=== PATIENT | male | born 1965 | race Caucasian/White ===

== ENCOUNTER 2023-01-17 13:59 | Emergency (ER) | payer OTHER ==
[~2023-01-17] VITALS: Ht 185.4 cm; Wt 90.7 kg
[~2023-01-17 13:59] MED LIST: ASPI325 PO; ASPI81CH PO; CLIN150 PO; DICL25ER PO; DIPH50 PO; DISU500 PO; FAMO20 PO; HYDACE5 PO; IBUP400 PO; IBUP800 PO; LIDO700A20 TOP; SOMA350 MG PO; SULTRIDS PO; TAMS.4ER PO; TRAM50 PO; TRIA80TC
== END 2023-01-17 16:00 | disposition left against medical advice (07) ==
LOC: ER 13:59
DX: R33.9 Retention of urine, unspecified (principal); R30.0 Dysuria; Z53.21 Procedure and treatment not carried out due to patient leaving prior to being seen by health care provider
CPT/HCPCS: 51798

== ENCOUNTER → 2023-04-06 | Outpatient (CLI) | payer OTHER | LOC: LAB SHORT 18:29 → LAB 18:29 | DX: L03.114 Cellulitis of left upper limb (principal) | CPT/HCPCS: 87070; 87075; 87077; 87147; 87186; 87205 ==

== ENCOUNTER 2025-04-25 08:02 | Inpatient (IN) | payer OTHER ==
[~2025-04-25] VITALS: Ht 185.4 cm; Wt 95.2 kg
[~2025-04-25 08:02] MED LIST changes: +CEPH500 PO
[2025-04-25] MEDS ORDERED: ATORVASTATIN CA20 MG PO (09:02)
[2025-04-25 09:29] LABS: Source, Urine Clean Catch
[2025-04-25 09:34] LABS: Bilirubin, Urine Neg (Neg); Color, Urine Yellow (P-Yellow); Glucose Qualitative, Urine Neg (Neg); Ketones, Urine 1+ (Neg); Leukocyte Esterase, Urine 3+ (Neg); Protein, Urine 3+ (Neg); Specific Gravity, Urine 1.015 (1.003-1.022); Urobilinogen, Urine NORM (Normal)
[2025-04-25 09:41] LABS: BASOPHILS ABSOLUTE AUTO 0.10 K/mm3 (0.00-0.23); BASOPHILS PERCENT AUTO 0 % (0-2); EOSINOPHILS ABSOLUTE AUTO 0.00 K/mm3 (0.00-0.68); EOSINOPHILS PERCENT AUTO 0 % (0-6); Hematocrit 41.3 % (37.0-53.0); Hemoglobin 13.7 g/dL (13.5-17.5); IMMATURE GRAN ABSOLUTE AUTO 0.31 K/mm3 (0.00-0.10); IMMATURE GRAN PERCENT AUTO 1 % (0-1); LYMPHOCYTES ABSOLUTE AUTO 0.92 K/mm3 (0.84-5.20); LYMPHOCYTES PERCENT AUTO 3 % (21-46); MONOCYTES ABSOLUTE AUTO 2.27 K/mm3 (0.16-1.47); MONOCYTES PERCENT AUTO 8 % (4-13); Mean Corpuscular HGB Conc 33.2 g/dL (31.5-36.5); Mean Corpuscular Volume 88 fL (80-100); NEUTROPHILS ABSOLUTE AUTO 26.83 K/mm3 (1.96-9.15); NEUTROPHILS PERCENT AUTO 88 % (41-73); NRBC ABSOLUTE 0.00 K/mm3 (0.00-0.02); NRBC Auto 0.0 /100 WBC (0.0-0.2); Platelet Count 318 K/mm3 (150-400); RDW Coefficient Variation 15.4 % (11.7-14.2); RDW Standard Deviation 50.1 fL (35.1-46.3)
[2025-04-25 09:45] LABS: White Blood Cells, Urine 50-100 /hpf (0-5)
[2025-04-25 10:28] LABS: Alanine Aminotransfer (ALT/SGP 22.0 U/L (12-78); Albumin, Blood 2.9 g/dL (3.4-5.0); Albumin/Globulin Ratio 0.7 (0.8-1.8); Anion Gap 7.0 mmol/L (3-11); Aspartate Aminotrans (AST/SGOT 13.0 U/L (12-37); Bilirubin, Total 1.0 mg/dL (0.1-1.0); Blood Urea Nitrogen 16.0 mg/dL (8-24); CO2, Blood 29.0 mmol/L (21-32); Calcium, Blood 8.1 mg/dL (8.5-10.1); Chloride, Blood 101.0 mmol/L (98-108); Creatinine, Blood 1.19 mg/dL (0.60-1.20); Globulin, Blood 4.1 g/dL (2.2-4.0); Glucose, Blood 156.0 mg/dL (70-99); Potassium, Blood 4.0 mmol/L (3.5-5.5); Sodium, Blood 133.0 mmol/L (136-145); Total Protein, Blood 7.0 g/dL (6.4-8.2)
[2025-04-25] MEDS ORDERED: NS 1,000 ML IV SCH ×2 (11:05→12:00)
[2025-04-25] MEDS ORDERED: CefTRIAXone Sodium 1,000 MG in NS 100 ML IV ONE ×2 (11:10→13:00)
[2025-04-25 14:04] VITALS: BP 153/83
[2025-04-25 15:21] VITALS: BP 136/80
[2025-04-25] MEDS ORDERED: Ipratropium/Albuterol SulF 2.5-0.5MG/3 ML Amp INH PRN (16:20)
[2025-04-25] MEDS ORDERED: FentaNYL Citrate 50 MCG/ML 2 ML Injection IV PRN (16:20)
[2025-04-25] MEDS ORDERED: Albuterol HFA200 ACT/6.7 GM INH INH PRN (16:25)
--- NOTE | 2025-04-25 16:26 | NUR ---
ADMIT REPORT RECEIVED FROM ER TO YURY KIRK LPN. PT ARRIVED VIA GURNEY ACCOMPANIED BY CHAVO. PT IMMEDIATELY NEEDED TO USE THE BATHROOM AND HAD A EXPLOSIVE LOOSE STOOL. PT RELATED THAT THE LOOSE STOOL STARTED SEVERAL DAYS AGO. TALKED WITH DR BEAN ABOUT A CDIFF ASSAY. PT HAS BEEN TAKING ANTIBOTICS OUT PT. CARE ONGOING.
[2025-04-25] MEDS ORDERED: Lactobacil 2-S.Thermo-Bifido 1 1 Cap PO SCH (17:00)
[2025-04-25 19:17] VITALS: BP 131/81
[2025-04-26 00:16] LABS: Campylobacter Sp Not Detected (NOT DETECT); E. Coli O157 Not Detected (NOT DETECT); Enteroaggregative E. coli-EAEC Not Detected (NOT DETECT); Enteropathogenic E. coli-EPEC Not Detected (NOT DETECT); Enterotoxigenic E. coli-ETEC Not Detected (NOT DETECT); Salmonella Sp Not Detected (NOT DETECT); Shiga Toxin-prod E. coli-STEC Not Detected (NOT DETECT); Shigella/Enteroin E. coli-EIEC Not Detected (NOT DETECT); Vibrio Sp Not Detected (NOT DETECT)
--- NOTE | 2025-04-26 05:12 | NUR ---
SHIFT SUMMARY PT A&Ox4, VSS ON RA. STOOL SAMPLE SENT TO LAB, UNREMARKABLE RESULTS. PT DENIES NAUSEA. ONE EPISODE DIARRHEA. PT REPORTS 7/10 L FLANK PAIN, RADIATING ACROSS THE LOW BACK, PRN FENTANYL GIVEN X 2. SAFETY PRECAUTIONS IN PLACE, CALL LIGHT IN REACH.
[2025-04-26 06:07] LABS: BASOPHILS ABSOLUTE AUTO 0.08 K/mm3 (0.00-0.23); BASOPHILS PERCENT AUTO 0 % (0-2); EOSINOPHILS ABSOLUTE AUTO 0.01 K/mm3 (0.00-0.68); EOSINOPHILS PERCENT AUTO 0 % (0-6); Hematocrit 38.7 % (37.0-53.0); Hemoglobin 13.2 g/dL (13.5-17.5); IMMATURE GRAN ABSOLUTE AUTO 0.22 K/mm3 (0.00-0.10); IMMATURE GRAN PERCENT AUTO 1 % (0-1); LYMPHOCYTES ABSOLUTE AUTO 0.78 K/mm3 (0.84-5.20); LYMPHOCYTES PERCENT AUTO 3 % (21-46); MONOCYTES ABSOLUTE AUTO 1.93 K/mm3 (0.16-1.47); MONOCYTES PERCENT AUTO 8 % (4-13); Mean Corpuscular HGB Conc 34.1 g/dL (31.5-36.5); Mean Corpuscular Volume 88 fL (80-100); NEUTROPHILS ABSOLUTE AUTO 19.96 K/mm3 (1.96-9.15); NEUTROPHILS PERCENT AUTO 87 % (41-73); NRBC ABSOLUTE 0.00 K/mm3 (0.00-0.02); NRBC Auto 0.0 /100 WBC (0.0-0.2); Platelet Count 271 K/mm3 (150-400); RDW Coefficient Variation 15.3 % (11.7-14.2); RDW Standard Deviation 49.5 fL (35.1-46.3)
[2025-04-26 06:27] VITALS: BP 128/76
[2025-04-26 06:49] LABS: Anion Gap 9.0 mmol/L (3-11); Blood Urea Nitrogen 17.0 mg/dL (8-24); CO2, Blood 23.0 mmol/L (21-32); Calcium, Blood 8.0 mg/dL (8.5-10.1); Chloride, Blood 108.0 mmol/L (98-108); Creatinine, Blood 0.98 mg/dL (0.60-1.20); Glucose, Blood 127.0 mg/dL (70-99); Potassium, Blood 3.6 mmol/L (3.5-5.5); Sodium, Blood 136.0 mmol/L (136-145)
[2025-04-26 08:20] VITALS: BP 127/74
[2025-04-26 08:58] VITALS: BP 119/71
[2025-04-26] MEDS ORDERED: Enoxaparin 40 MG/0.4 ML SYR SC SCH (09:00)
--- NOTE | 2025-04-26 10:59 | NUR ---
CRITICAL LAB: POSITIVE BLOOD CULTURES. DR. FELDMAN NOTIFIED VIA IN PERSON. NO NEW ORDERS
[2025-04-26] MEDS ORDERED: NS 250 ML IV PRN (11:40)
[2025-04-26] MEDS ORDERED: CefTRIAXone Sodium 2,000 MG in NS 100 ML IV SCH (12:00)
[2025-04-26 12:58] VITALS: BP 148/84
[2025-04-26 14:29] VITALS: BP 132/73
--- NOTE | 2025-04-26 16:57 | NUR ---
SHIFT SUMMARY: PT AOX4 AND COOPERATIVE WITH CARE. PT MEDICATED FOR A A FEVER OF 101.1 WITH TYLONEL PER EMAR. TEMP CHECKED 30 MINUETS LATER AND IS DOWN TO 100.7. PT HAD VISITORS AT BEDSIDE THROUGH OUT SHIFT. PT GIVEN ROCEPHIN ORDERED. PT VOIDING IN URNIAL IND. CALL LIGHT IN REACH. CARE ONGOING
--- NOTE | 2025-04-26 18:08 | NUR ---
Patient is resting and eating meal in bed. Declined assist to bathroom and used urinal at bedside independently. All needs are met and patient has call light within reach. Brought fresh ice water and cleaned room. Bed alarm is on and bed in lowest position.
[2025-04-26 19:58] VITALS: BP 105/56
[2025-04-27 05:50] VITALS: BP 120/70
--- NOTE | 2025-04-27 05:52 | NUR ---
SHIFT SUMMARY PT A&Ox4, VSS ON RA. NO ACUTE CHANGES OVERNIGHT. PT REPORTS 3/10 L FLANK PAIN, DECLINED MEDICATION, REQUESTED "REST". I/Os MONITORED. SAFETY PRECAUTIONS IN PLACE, CALL LIGHT IN REACH.
[2025-04-27 07:35] VITALS: BP 127/75
[2025-04-27 08:31] LABS: Hematocrit 38.5 % (37.0-53.0); Hemoglobin 13.2 g/dL (13.5-17.5); Mean Corpuscular HGB Conc 34.3 g/dL (31.5-36.5); Mean Corpuscular Volume 88 fL (80-100); NRBC ABSOLUTE 0.00 K/mm3 (0.00-0.02); NRBC Auto 0.0 /100 WBC (0.0-0.2); Platelet Count 283 K/mm3 (150-400); RDW Coefficient Variation 15.3 % (11.7-14.2); RDW Standard Deviation 49.5 fL (35.1-46.3)
[2025-04-27 08:50] LABS: Anion Gap 8.0 mmol/L (3-11); Blood Urea Nitrogen 19.0 mg/dL (8-24); CO2, Blood 27.0 mmol/L (21-32); Calcium, Blood 7.9 mg/dL (8.5-10.1); Chloride, Blood 107.0 mmol/L (98-108); Creatinine, Blood 1.18 mg/dL (0.60-1.20); Glucose, Blood 141.0 mg/dL (70-99); Potassium, Blood 3.5 mmol/L (3.5-5.5); Sodium, Blood 138.0 mmol/L (136-145)
[2025-04-27] MEDS ORDERED: CefTRIAXone Sodium 2,000 MG in NS 100 ML IV SCH (09:00)
[2025-04-27 15:50] VITALS: BP 135/85
[2025-04-27] MEDS ORDERED: Polyethylene Glycol 3350 17 gm PO PRN (15:50)
--- NOTE | 2025-04-27 17:57 | NUR ---
SHIFT SUMMARY PT IS A/OX4. NO ACUTE CHANGES THROUGHOUT THIS SHIFT. UP WITH SBA TO BATHROOM. PT SLEEPING FOR MUCH OF THIS SHIFT. PT ABLE TO HAVE A BM THIS AFTERNOON AND REPORTS NO DIARRHEA. NO FEVERS PRESENT THROUGHOUT THIS SHIFT. CONTINUING IV ANTIBIOTICS. SIGNIFICANT OTHER AND DAUGHTER AT BEDSIDE THIS AFTERNOON.
[2025-04-27 19:51] VITALS: BP 135/80
[2025-04-28 04:29] VITALS: BP 145/92
[2025-04-28 05:52] LABS: BASOPHILS ABSOLUTE AUTO 0.07 K/mm3 (0.00-0.23); BASOPHILS PERCENT AUTO 1 % (0-2); EOSINOPHILS ABSOLUTE AUTO 0.12 K/mm3 (0.00-0.68); EOSINOPHILS PERCENT AUTO 1 % (0-6); Hematocrit 37.0 % (37.0-53.0); Hemoglobin 12.4 g/dL (13.5-17.5); IMMATURE GRAN ABSOLUTE AUTO 0.06 K/mm3 (0.00-0.10); IMMATURE GRAN PERCENT AUTO 1 % (0-1); LYMPHOCYTES ABSOLUTE AUTO 1.17 K/mm3 (0.84-5.20); LYMPHOCYTES PERCENT AUTO 13 % (21-46); MONOCYTES ABSOLUTE AUTO 1.04 K/mm3 (0.16-1.47); MONOCYTES PERCENT AUTO 12 % (4-13); Mean Corpuscular HGB Conc 33.5 g/dL (31.5-36.5); Mean Corpuscular Volume 87 fL (80-100); NEUTROPHILS ABSOLUTE AUTO 6.60 K/mm3 (1.96-9.15); NEUTROPHILS PERCENT AUTO 73 % (41-73); NRBC ABSOLUTE 0.00 K/mm3 (0.00-0.02); NRBC Auto 0.0 /100 WBC (0.0-0.2); Platelet Count 331 K/mm3 (150-400); RDW Coefficient Variation 15.3 % (11.7-14.2); RDW Standard Deviation 49.1 fL (35.1-46.3)
--- NOTE | 2025-04-28 05:58 | NUR ---
SHIFT SUMMARY PT A&Ox4. FAMILY AT BEDSIDE DURING THE START OF SHIFT. NO C/O PAIN. PT REMAINED AFEBRILE. NO EPISODES OF DIARRHEA. VSS. BED IN LOWEST POSITION AND CALL LIGHT IN REACH.
[2025-04-28 06:26] LABS: Anion Gap 8.0 mmol/L (3-11); Blood Urea Nitrogen 16.0 mg/dL (8-24); CO2, Blood 26.0 mmol/L (21-32); Calcium, Blood 8.0 mg/dL (8.5-10.1); Chloride, Blood 108.0 mmol/L (98-108); Creatinine, Blood 0.94 mg/dL (0.60-1.20); Glucose, Blood 117.0 mg/dL (70-99); Potassium, Blood 3.5 mmol/L (3.5-5.5); Sodium, Blood 138.0 mmol/L (136-145)
[2025-04-28 07:06] VITALS: BP 140/88
--- NOTE | 2025-04-28 13:08 | NUR ---
THIS RN WAS INFORMED BY THE ELECTRONICS SUPERVISOR THAT THE PT WAS NO LONGER IN HIS ROOM. PT UNABLE TO BE FOUND ON THIS FLOOR. PT STILL HAD IN HIS IV. THIS RN ATTEMPT TO CALL PT'S PHONE AND SENT TO [employer]. MESSAGE LEFT INFORMING PT THAT HE COULD RETURN TO THE ER TO HAVE THE IV REMOVED.
--- NOTE | 2025-04-28 14:01 | NUR ---
PT ROUNDED ON AT APPROX 1230. WHEN ROUNDING AGAIN AT APPROX. 1300 PT NOT IN ROOM. SEE PREVIOUS NOTE. AT THIS TIME PT HAS STILL NOT RETURNED TO ROOM AND HAS LEFT AMA. DR MADRID NOTIFIED.
== END 2025-04-28 14:07 | disposition left against medical advice (07) | DRG 872 ==
LOC: ER 08:02 → MEDS 11:53
PROVIDERS: Student in an Organized Health Care Education/Training Program; ADMIT Internal Medicine
DX: A41.51 Sepsis due to Escherichia coli [E. coli] (principal); N10 Acute pyelonephritis; E87.1 Hypo-osmolality and hyponatremia; N39.0 Urinary tract infection, site not specified; I10 Essential (primary) hypertension; J44.9 Chronic obstructive pulmonary disease, unspecified; E86.0 Dehydration; N40.1 Benign prostatic hyperplasia with lower urinary tract symptoms; R30.0 Dysuria; Z53.29 Procedure and treatment not carried out because of patient's decision for other reasons; R39.11 Hesitancy of micturition; R35.0 Frequency of micturition; E78.5 Hyperlipidemia, unspecified; Z87.440 Personal history of urinary (tract) infections; F17.210 Nicotine dependence, cigarettes, uncomplicated; F12.90 Cannabis use, unspecified, uncomplicated; Z79.899 Other long term (current) drug therapy; Z90.49 Acquired absence of other specified parts of digestive tract; Z83.3 Family history of diabetes mellitus; Z80.8 Family history of malignant neoplasm of other organs or systems
CPT/HCPCS: 36415; 74177; 80048; 80053; 81001; 82947; 83605; 83690; 85025; 85027; 87040; 87077; 87086; 87186; 87507; 93005; 93010; 96360-59; 99285-25; A9270; J0696; J1650; J3010; J7030; J7050; Q9967